=== PATIENT | male | born 1975 | race Two or more races ===

== ENCOUNTER 2021-06-18 08:34 | Outpatient (CLI) | payer OTHER | END 2021-06-18 08:36 | disposition home or self-care (01) | LOC: LAB 08:34 | PROVIDERS: ATTEND Family Medicine | DX: I10 Essential (primary) hypertension (principal); N39.0 Urinary tract infection, site not specified; E11.9 Type 2 diabetes mellitus without complications; D40.8 Neoplasm of uncertain behavior of other specified male genital organs; E55.9 Vitamin D deficiency, unspecified; M06.8A Other specified rheumatoid arthritis, other specified site; A90 Dengue fever [classical dengue] ==

== ENCOUNTER 2022-03-11 08:11 | Outpatient (CLI) | payer OTHER | END 2022-03-11 08:55 | disposition home or self-care (01) | LOC: LAB 08:11 | PROVIDERS: ATTEND Family Medicine | DX: D64.9 Anemia, unspecified (principal); N39.0 Urinary tract infection, site not specified; I10 Essential (primary) hypertension; E55.9 Vitamin D deficiency, unspecified; K86.1 Other chronic pancreatitis; E78.70 Disorder of bile acid and cholesterol metabolism, unspecified ==

== ENCOUNTER → 2022-03-29 06:17 | Outpatient (CLI) | payer OTHER | END | disposition home or self-care (01) | LOC: LAB 06:17 | DX: K85.90 Acute pancreatitis without necrosis or infection, unspecified (principal) ==

== ENCOUNTER 2022-03-29 07:19 | Outpatient (CLI) | payer OTHER | END 2022-03-29 07:22 | disposition home or self-care (01) | LOC: SONOGRAMA 07:19 | DX: K85.00 Idiopathic acute pancreatitis without necrosis or infection (principal) ==

== ENCOUNTER 2022-04-22 07:29 | Outpatient (CLI) | payer OTHER | END 2022-04-22 07:30 | disposition home or self-care (01) | LOC: LAB 07:29 | PROVIDERS: ATTEND Family Medicine | DX: D64.9 Anemia, unspecified (principal); N39.0 Urinary tract infection, site not specified; I10 Essential (primary) hypertension; E11.69 Type 2 diabetes mellitus with other specified complication; E78.79 Other disorders of bile acid and cholesterol metabolism; E55.9 Vitamin D deficiency, unspecified; K86.1 Other chronic pancreatitis ==

== ENCOUNTER 2022-06-29 06:10 | Emergency (ER) | payer OTHER ==
[~2022-06-29] VITALS: Ht 175.3 cm; Wt 88.5 kg
== END 2022-06-29 09:16 | disposition home or self-care (01) ==
LOC: ER 06:10
DX: J03.90 Acute tonsillitis, unspecified (principal)